=== PATIENT | male | born 1940 | race Caucasian/White ===

== ENCOUNTER 2018-04-12 19:09 | Emergency (ER) | payer OTHER ==
[~2018-04-12] VITALS: Ht 165.1 cm; Wt 87.0 kg
[2018-04-12] MEDS ORDERED: normal saline 1000ML IV soln IVB ONE (20:55)
[2018-04-12 21:30] VITALS: BP 151/93
[2018-04-12] MEDS ORDERED: MIDAZolam 5mg/5ml vial ONE (21:38)
[2018-04-12] MEDS ORDERED: LIDOcaine Viscous 15ml cup ONE (21:38)
[2018-04-12] MEDS ORDERED: fentaNYL/PF 50MCG/1 ML 2ML syringe ONE (21:38)
[2018-04-12 21:49] VITALS: BP 174/101
[2018-04-12 21:59] VITALS: BP 153/115
[2018-04-12 22:09] VITALS: BP 159/88
[2018-04-12 22:19] VITALS: BP 165/95
[2018-04-12] MEDS ORDERED: pantoprazole 40mg Tablet.DR PO SCH (22:35)
[2018-04-12] MEDS ORDERED: OMEP20CA10 PO (22:36)
[2018-04-12 22:42] VITALS: BP 122/68
[2018-04-12] MEDS ORDERED: fentaNYL/PF 50MCG/1 ML 2ML syringe IV ONE (22:55)
[2018-04-12] MEDS ORDERED: midazolam 2 mg/2 ml injection IV ONE (22:55)
== END 2018-04-12 22:44 | disposition home or self-care (01) ==
LOC: ER 19:10
DX: T18.128A Food in esophagus causing other injury, initial encounter (principal); I10 Essential (primary) hypertension; G89.29 Other chronic pain; Z90.49 Acquired absence of other specified parts of digestive tract; Z79.899 Other long term (current) drug therapy; X58.XXXA Exposure to other specified factors, initial encounter; Y93.89 Activity, other specified; Y92.89 Other specified places as the place of occurrence of the external cause; Y99.8 Other external cause status
CPT/HCPCS: 43235; 99152; 99285; J2250; J3010; J7030; A4620